=== PATIENT | female | born 1965 | race Hispanic/Latino ===

== ENCOUNTER 2018-01-24 18:41 | Emergency (ER) | payer BC ==
--- NOTE | 2018-01-24 19:17 | RAD ---
CHEST TWO VIEWS: HISTORY: Cough. COMPARISON: 10/28/2007 FINDINGS: Normal cardiac silhouette. Pulmonary vessels and hilum are normal. Costophrenic angles are clear. No consolidation or mass. No pneumothorax or osseous abnormalities. IMPRESSION: No acute cardiopulmonary process. POS: [facility]
== END 2018-01-24 21:09 | disposition home or self-care (01) ==
LOC: ERS 18:41
DX: J40 Bronchitis, not specified as acute or chronic (principal)
CPT/HCPCS: 71046; 87804

== ENCOUNTER 2018-05-23 11:03 | Outpatient (CLI) | payer BC ==
--- NOTE | 2018-05-23 13:11 | RAD ---
LEFT KNEE THREE VIEWS: HISTORY: Left knee pain. COMPARISON: None. FINDINGS: Three views of the left knee show no evidence of acute fracture or dislocation. Mild degenerative ch anges are seen in the patellofemoral and lateral femorotibial compartments. IMPRESSION: Mild left knee osteoarthritis. POS: [facility]
== END 2018-05-23 11:04 | disposition home or self-care (01) ==
LOC: BICRAD 11:03
PROVIDERS: ATTEND Internal Medicine
DX: M25.562 Pain in left knee (principal); M17.12 Unilateral primary osteoarthritis, left knee
CPT/HCPCS: 36415; 80053; 80061; 82306; 83036; 84443; 85025

== ENCOUNTER 2018-05-30 12:38 | Outpatient (CLI) | payer BC ==
--- NOTE | 2018-05-30 15:05 | MRI ---
LEFT KNEE MRI WITHOUT IV CONTRAST: HISTORY: Left knee pain. FINDINGS: Multiplanar, multisequence MRI examination of the knee is performed. There is some suprapatellar rec ess fluid. There is some generalized cartilage loss including the femoropatellar compartment with so me subchondral cystic changes as well as the medial compartment. Irregular flap tear of the posterio r horn of the medial meniscus with displaced meniscal flaps at the level of the posterior root and al so at the posterior body posterior horn junction. There is an adjacent cystic focus posterior to the posterior root, possibly a small paralabral cyst. Immediate to this and somewhat more centrally, th ere is a 2nd cyst measuring approximately 1.3 cm which could represent extension of the paralabral cy st, although it could represent a small ganglion cyst. The lateral meniscus is a borderline discoid meniscus. The anterior and posterior cruciate ligaments and collateral ligament complexes appear int act. Quadriceps and patellar tendons appear intact. Anterior and posterior cruciate ligaments appea r intact. No significant acute osteochondral defect. No significant abnormal marrow signal. IMPRESSION: Complex flap tear of the posterior horn of the medial meniscus. Borderline discoid lateral meniscus. Probable paralabral cyst/cysts projecting posteriorly from the posterior root of the medial menisc us. Tricompartment arthrosis and degenerative changes. POS: [facility]
== END 2018-05-30 12:39 | disposition home or self-care (01) ==
LOC: TBSIIMAG 12:38
PROVIDERS: ATTEND Internal Medicine
DX: M25.562 Pain in left knee (principal); S83.232A Complex tear of medial meniscus, current injury, left knee, initial encounter; M17.12 Unilateral primary osteoarthritis, left knee

== ENCOUNTER 2018-06-09 00:28 | Outpatient (CLI) | payer BC ==
[2018-06-09 15:44] LABS: #Basophils 0.1 thou/uL (0.0-0.2); #Eosinphils 0.1 thou/uL (0.0-0.7); #Lymphocytes 2.1 thou/uL (1.20-3.40); #Monocytes 0.5 thou/uL (0.11-0.59); #Neutrophils 2.7 thou/uL (1.40-6.50); %Eosinophils 2.4 % (0.0-10.0); %Lymphocytes 38.6 % (21.0-51.0); %Monocytes 8.8 % (0.0-10.0); %Neutrophils 49.2 % (42.0-75.0); Hemoglobin 14.1 g/dL (12.0-16.0); Mean Corpuscular HGB CONC 33.9 g/dL (32.0-36.0); Mean Corpuscular Hemoglobin 32.4 pg (27.0-31.0); Mean Corpuscular Volume 95.7 fL (78.0-98.0); Mean Platelet Volume 7.2 fL (7.4-10.4); Platelet Count 171 thou/uL (130-400); Red Blood Cell (RBC) Count 4.34 mill/uL (4.20-5.40); White Blood Cell (WBC) Count 5.4 thou/uL (4.8-10.8)
[2018-06-09 16:06] LABS: Anion Gap 11 mmol/L (10-20); BUN (Urea Nitrogen) 8 mg/dL (9.8-20.1); Calc. Creatinine Clearance 0 mL/min (70-130); Calcium 9.9 mg/dL (7.8-10.44); Carbon Dioxide 29 mmol/L (22-29); Chloride 105 mmol/L (98-107); Estimated GFR-MDRD 79; Glucose 123 mg/dL (70-105); Potassium 3.8 mmol/L (3.5-5.1); Sodium 141 mmol/L (136-145)
--- NOTE | 2018-06-10 22:29 | EKG ---
Test Reason : Blood Pressure : / mmHG Vent. Rate : 067 BPM Atrial Rate : 067 BPM P-R Int : 164 ms QRS Dur : 102 ms QT Int : 404 ms P-R-T Axes : 040 -05 037 degrees QTc Int : 426 ms Normal sinus rhythm Incomplete right bundle branch block Cannot rule out Inferior infarct , age undetermined Anterior infarct , age undetermined Abnormal ECG No previous ECGs available Confirmed by Almita BOLIVAR ([id number]) on 06/10/2018 10:29:21 PM Referred By: CHEYANNE Confirmed By:Almita BOLIVAR
== END 2018-06-09 00:29 | disposition home or self-care (01) ==
LOC: LABBT 00:28
PROVIDERS: ATTEND Orthopaedic Surgery
DX: Z01.818 Encounter for other preprocedural examination (principal); S83.242A Other tear of medial meniscus, current injury, left knee, initial encounter
CPT/HCPCS: 80048; 85025; 93005; 93010

== ENCOUNTER 2018-06-13 07:49 | Day surgery (SDC) | payer BC ==
[2018-06-09 15:00] VITALS: BMI 38.9
[2018-06-13] MEDS ORDERED: PROPOFOL 20 ML ONE (08:02)
--- NOTE | 2018-06-13 10:57 | OP ---
DATE OF PROCEDURE: 06/13/2018 PREOPERATIVE DIAGNOSIS: Left knee medial meniscus tear. POSTOPERATIVE DIAGNOSIS: Left knee medial meniscus tear. PROCEDURE PERFORMED: Arthroscopic partial medial meniscectomy. ANESTHESIA: General. ESTIMATED BLOOD LOSS: Minimal. SPECIMENS: None. DRAINS: None. COMPLICATIONS: None. FINDINGS: Grade 3 chondromalacia of medial femoral condyle, small patchy grade 4 chondromalacia of medial femoral condyle, intact lateral compartment, intact ACL, intact patellofemoral joint. Scope was placed in the lateral portal and probe was placed in the medial portal. The medial meniscus was debrided using basket forceps and smoothed using a 4-0 full-radius resector, removed most of the posterior horn of the medial meniscus. I probed remainder of the meniscus, confirmed to be stable. I irrigated the knee, irrigated the gutters, make sure there were no loose bodies. The scope was removed and a sterile dressing was applied. There were no complications. Job ID: [id number]
[2018-06-13] MEDS ORDERED: HYDROcodone/Acetaminophen 5/325 mg Tablet ONE (11:09)
[2018-06-13] MEDS ORDERED: Lidocaine 2% w/Epinephrine 1:200K 20 ML VIAL ONE (16:29)
[2018-06-13] MEDS ORDERED: Bupivacaine HCl 0.5%/Epinephrine 1:200,000/PF 30 ml Vial ONE (16:29)
[2018-06-13] MEDS ORDERED: Lidocaine 1% PF 5 ML VIAL ONE (17:02)
[2018-06-13] MEDS ORDERED: PROPOFOL 200 MG/20 ML VIAL ONE ×2 (17:02→17:03)
[2018-06-13] MEDS ORDERED: Ondansetron PF 4 MG/2 ML Vial ONE (17:02)
[2018-06-13] MEDS ORDERED: Ketorolac Tromethamine 30 MG/ML VIAL ONE (17:02)
== END 2018-06-13 11:50 | disposition home or self-care (01) ==
LOC: SDC 07:49
PROVIDERS: ATTEND Orthopaedic Surgery
PROC: 0SBD4ZZ Excision of Left Knee Joint, Percutaneous Endoscopic Approach (ICD-10-PCS; principal; 2018-06-13)
DX: S83.242A Other tear of medial meniscus, current injury, left knee, initial encounter (principal); M94.262 Chondromalacia, left knee; M17.12 Unilateral primary osteoarthritis, left knee; Z87.891 Personal history of nicotine dependence; Z79.899 Other long term (current) drug therapy; Z88.5 Allergy status to narcotic agent
CPT/HCPCS: J0690; J2704

== ENCOUNTER 2019-04-24 09:17 | Observation (INO) | payer BC, SELFPAY ==
[2019-04-24 09:38] LABS: #Eosinphils 0.1 thou/uL (0.0-0.7); #Lymphocytes 2.1 thou/uL (1.20-3.40); #Monocytes 0.5 thou/uL (0.11-0.59); #Neutrophils 2.3 thou/uL (1.40-6.50); %Basophils 0.7 % (0.0-1.0); %Eosinophils 2.5 % (0.0-10.0); %Monocytes 9.3 % (0.0-10.0); %Neutrophils 46.5 % (42.0-75.0); Mean Corpuscular HGB CONC 34.6 g/dL (32.0-36.0); Mean Corpuscular Hemoglobin 33.7 pg (27.0-31.0); Mean Corpuscular Volume 97.4 fL (78.0-98.0); Mean Platelet Volume 7.9 fL (7.4-10.4); Platelet Count 139 thou/uL (130-400); Red Blood Cell (RBC) Count 4.45 mill/uL (4.20-5.40)
[2019-04-24 10:08] LABS: ALT (SGPT) 36 U/L (8-55); AST (SGOT) 46 U/L (5-34); Albumin 3.8 g/dL (3.5-5.0); Alkaline Phosphatase 107 U/L (40-110); Anion Gap 10 mmol/L (10-20); BUN (Urea Nitrogen) 7 mg/dL (9.8-20.1); CK (CPK) 107 U/L (29-168); Calc. Creatinine Clearance 0 mL/min (70-130); Calcium 9.5 mg/dL (7.8-10.44); Carbon Dioxide 26 mmol/L (22-29); Chloride 107 mmol/L (98-107); Estimated GFR-MDRD 89; Globulin 3.2 g/dL (2.4-3.5); Glucose 92 mg/dL (70-105); Lipase 44 U/L (8-78); Potassium 4.1 mmol/L (3.5-5.1); Sodium 139 mmol/L (136-145)
[2019-04-24] MEDS ORDERED: Aspirin Chewable 81 MG TAB ONE (11:59)
[2019-04-24] MEDS ORDERED: Nitroglycerin 2% Ointment 1 INCH/1 GM Packet ONE (11:59)
[2019-04-24] MEDS ORDERED: Ondansetron ODT 4 MG TAB SL PRN (12:30)
[2019-04-24] MEDS ORDERED: Ondansetron PF 4 MG/2 ML Vial IVP PRN (12:30)
[2019-04-24] MEDS ORDERED: HYDROcodone/Acetaminophen 5/325 mg Tablet PO PRN ×2 (12:30)
[2019-04-24] MEDS ORDERED: Acetaminophen 325 MG TAB PO PRN (12:30)
[2019-04-24] MEDS ORDERED: Sodium Chloride 0.9% 1,000 ML IV SCH (12:30)
--- NOTE | 2019-04-24 13:46 | PDOC.HHP ---
Hospitalist HPI - History of Present Illness Chest pain History of Present Illness: Mrs. Rose is a 52 y/o F w/ no significant past medical history presenting to the [facility] c/o of midsternal CP onset 0400 this morning. Pt states that the CP woke her up from sleep and describes the pain as a "hard, and sharp pain similar to my bladder pain." Pt states that the pain radiated to her back, abdomen, upper chest, and to her neck and shoulders bilaterally. She states that she had a severe 10/10 CP until 0730 this morning. She received Aspirin 81mg at the ED which improved the pain. No exacerbating factors were stated by the patient. The pain has eased to a sharp pain that comes and goes. Pt also complains of headache over her forehead, LE edema, and nausea. She denies syncope, dizziness, diaphoresis, change in vision, SOB, vomiting, diarrhea, dysuria, and hematuria. ED Course: Drug Name Dose Ordered Route Status Time sodium chloride 0.9 % intravenous 1 L IV Fluid Infusion Given 12:15 04/24/2019 aspirin oral 324 mg Oral Given 12:10 04/24/2019 Nitro-Bid transdermal 1/2 inch Topical Given 12:10 04/24/2019 Hospitalist ROS - Review of Systems Constitutional: denies: fever, chills, sweats, weakness, malaise, other Eyes: denies: pain, vision change, conjunctivae inflammation, eyelid inflammation, redness, other ENT: denies: ear pain, ear discharge, nose pain, nose discharge, nose congestion , mouth pain, mouth swelling, throat pain, throat swelling, other Respiratory: denies: cough, dry, shortness of breath, hemoptysis, SOB with excertion, pleuritic pain, sputum, wheezing, other Cardiovascular: reports: chest pain, edema. denies: palpitations, orthopnea, paroxysmal noc. dyspnea, light headedness, other Gastrointestinal: reports: nausea. denies: vomiting, abdominal pain, diarrhea, constipation, melena, hematochezia, other Genitourinary: denies: dysuria, frequency, incontinence, hematuria, retention, other Musculoskeletal: denies: neck pain, shoulder pain, arm pain, back pain, hand pain, leg pain, foot pain, other Skin: denies: rash, lesions, jefferson, bruising, other Neurological: denies: weakness, numbness, incoordination, change in speech, confusion, seizures, other All other systems reviewed; all pertinent +/- noted in HPI/Subj Hospitalist History - Past Medical History Source: patient Cardiac: reports: Other (cardiac murmur - found 1 yr ago - never worked up) Other Medical History: Past medical Hx reviewed and none - Past Surgical History Past Surgical History: reports: Cholecystectomy Other Surgical History: HYSTERECTOMY, LEFT ANKLE SURGERY, METAL PLATE WITH SCREWS TO LEFT ANKLE, CHOLECYSTECTOMY. - Family History Other Family History: Father; diabetes Mother: Kidney cancer, liver transplant, DM, Heart disease Maternal uncle: heart disease, stroke - Social History Smoking Status: Current some day smoker Other Social History: Patient denies alcohol use, Patient denies drug use, Patient currently uses tobacco, smokes cigarettes, Occasional or some day smoker, Lives at home, with family. - Exam General Appearance: NAD, awake alert Eye: PERRL. negative: scleral icterus ENT: normocephalic atraumatic Neck: supple, no JVD, no carotid bruit Heart: RRR, no gallops, no rubs, murmur present, III/IV Respiratory: no wheezes, no rales, no ronchi, normal chest expansion, no tachypnea Gastrointestinal: soft, non-tender, non-distended, normal bowel sounds, no palpable masses, no hepatomegaly, no bruit, no guarding, no rigidity Extremities: 1+ LE edema. negative: no cyanosis, no clubbing, no edema, 2+ LE edema, clubbing Skin: negative: normal turgor, no lesions, no rashes, tenting Neurological: cranial nerve grossly intact, normal sensation to touch, no weakness. negative: facial droop, speech deficit, vision deficit Musculoskeletal: normal tone, normal strength, no muscle wasting Psychiatric: normal affect, normal behavior, A&O x 3 Hospitalist Results - Labs Result Diagrams: 04/24/19 09:28 04/24/19: Lab results: WBC 5.0 thou/uL (4.8-10.8) 04/24/19: Hgb 15.0 g/dL (12.0-16.0) 04/24/19: Hct 43.3 % (36.0-47.0) 02/21/20 09:28 MCV 97.4 fL (78.0-98.0) 04/24/19 09:28 Plt Count 139 thou/uL (130-400) 04/24/19 09:28 Neutrophils % 46.5 % (42.0-75.0) 04/24/19 09:28 Sodium 139 mmol/L (136-145) 04/24/19 09:28 Potassium 4.1 mmol/L (3.5-5.1) 04/24/19: Chloride 107 mmol/L (98-107) 04/24/19 09:28 Carbon Dioxide 26 mmol/L (22-29) 04/24/19 09:28 BUN 7 mg/dL (9.8-20.1) L 04/24/19 09:28 Creatinine 0.69 mg/dL (0.6-1.1) 04/24/19 09: Glucose 92 mg/dL (70-105) 04/24/19: Calcium 9.5 mg/dL (7.8-10.44) 04/24/19: Total Bilirubin 1.0 mg/dL (0.2-1.2) 04/24/19 09: AST 46 U/L (5-34) H 04/24/19:28 ALT 36 U/L (8-55) 04/24/19 09:28 Alkaline Phosphatase 107 U/L (40-110) 04/24/19 09: Creatine Kinase 107 U/L (29-168) 04/24/19 09: Troponin I 0.012 ng/mL (< 0.028) 04/24/19 09: Serum Total Protein 7.0 g/dL (6.0-8.3) 04/24/19:28 Albumin 3.8 g/dL (3.5-5.0) 04/24/19: Lipase 44 U/L (8-78) 04/24/19 09:28 Laboratory Tests 04/24/19 09:28 Troponin I 0.012 Laboratory Tests 04/24/19 09:28 BUN 7 L - EKG Interpretation EKG: SR - reviewed by me - Radiology Interpretation Chest x-ray Status: image reviewed by me Additional Comment: No infiltrate Hospitalist H&P A/P - Problem (1) Chest pain Code(s): R07.9 - CHEST PAIN, UNSPECIFIED Status: Acute (2) CKD (chronic kidney disease) stage 2, GFR 60-89 ml/min Code(s): N18.2 - CHRONIC KIDNEY DISEASE, STAGE 2 (MILD) Status: Chronic (3) Former tobacco use Code(s): Z87.891 - PERSONAL HISTORY OF NICOTINE DEPENDENCE Status: Chronic (4) Morbid obesity Code(s): E66.01 - MORBID (SEVERE) OBESITY DUE TO EXCESS CALORIES Status: Chronic (5) Cardiac murmur Code(s): R01.1 - CARDIAC MURMUR, UNSPECIFIED Status: Chronic - Plan Plan: Serial troponins Tele monitoring Stress test due to intermediate prob for CAD Echo to assess murmur - found 1 yr ago - Can also be done as outpt if stress test negative Monitor Troponin I. Cardiac stress test is ordered. Smoking cessation advised Assessment & Plan - Assessment Patient Problems: Problem List Problem Status Onset Chest pain Acute CKD (chronic kidney disease) stage 2, GFR 60-89 ml/min Chronic Cardiac murmur Chronic Former tobacco use Chronic Morbid obesity Chronic
[2019-04-24 14:07] LABS: Troponin I Less than 0.010 ng/mL (< 0.028)
[2019-04-24 14:24] VITALS: BMI 40.4
[2019-04-24] MEDS ORDERED: Nitroglycerin 0.4 MG TAB (25 Tab Bottle) PO PRN (14:57)
[2019-04-24 16:36] LABS: Troponin I Less than 0.010 ng/mL (< 0.028)
[2019-04-24] MEDS ORDERED: Enoxaparin Sodium 40 MG/0.4 ML SYRINGE SC SCH (21:00)
[2019-04-25 06:40] LABS: Cardiac Risk 3.6 (Less than 4.5)
[2019-04-25 08:03] VITALS: TEMP 97.8
[2019-04-25] MEDS ORDERED: Aspirin 325 mg Enteric Coated Tablet PO SCH (09:00)
[2019-04-25] MEDS ORDERED: FLU VACC QS2019-20(6MOS UP)/PF 60 MCG/0.5 ML SYRINGE IM ONE (09:00)
--- NOTE | 2019-04-25 11:04 | NM ---
Pharmacologic myocardial perfusion study HISTORY: Chest pain FINDINGS: Stress myocardial perfusion images demonstrate normal uptake of radiotracer seen within the left vent ricular myocardium. No focal defect is seen within the left ventricular myocardium. Gated images demonstrate normal ventricular wall motion and wall thickening. Calculated left ventricular ejection fraction is 72%. IMPRESSION: 1. Normal stress only myocardial perfusion study without a defect seen in the left ventricular myocar dium to suggest ischemia or scarring. 2. Normal LVEF of 72%.
--- NOTE | 2019-04-25 11:30 | PDOC.HOSPP ---
- Subjective Encounter Date: 04/25/19 Encounter Time: 11:28 Subjective: Ms. Rose was seen today in follow-up of chest pain. She says her symptoms have resolved. - Objective Vital Signs & Weight: Vital Signs (12 hours) Temp Pulse Resp BP BP Pulse Ox 04/25/19 07:04 97.8 F 68 16 126/59 L 96 04/25/19 04:40 98.3 F 69 16 113/56 L 96 Weight Weight 243 lb 3 oz I&O: 04/24/19 04/25/19 04/26/19 06:59 06:59 06:59 Intake Total 840 Output Total 250 Balance 590 Result Diagrams: 04/24/19 09:28 04/24/19 09:28 - Exam Eye: PERRL, anicteric sclera Heart: RRR, no murmur, no gallops, no rubs, normal peripheral pulses Respiratory: CTAB, no wheezes, no rales, no ronchi, normal chest expansion, no tachypnea, normal percussion Hosp A/P (1) Chest pain Code(s): R07.9 - CHEST PAIN, UNSPECIFIED Status: Acute (2) Morbid obesity Code(s): E66.01 - MORBID (SEVERE) OBESITY DUE TO EXCESS CALORIES Status: Chronic - Plan * Chest pain- probable non-cardiac- will give a trail of Protonix * Stable for discharge home with close follow-up.
[2019-04-25 12:05] VITALS: BP 128/56
--- NOTE | 2019-04-25 14:23 | DIS ---
DATE OF ADMISSION: 04/24/2019 DATE OF DISCHARGE: 04/25/2019 PRIMARY CARE PHYSICIAN: Amelie Lawson MD DISCHARGE DISPOSITION: Home. DISCHARGE DIAGNOSES: 1. Chest pain, probable, noncardiac. 2. Morbid obesity. 3. Probable gastroesophageal reflux disease. DISCHARGE MEDICATIONS: Protonix 40 mg daily. IMAGING DONE DURING THE HOSPITAL STAY: The patient had an echocardiogram in which the ejection fraction was estimated at 60% to 65%. The left ventricle was normal. The patient had a nuclear stress test. The patient only got up to 56% of her target heart rate. However, there was no reversible ischemia. No other defect. The EF was estimated at 72%. CODE STATUS: Full code. ALLERGIES: TO MORPHINE. HOSPITAL COURSE: Ms. Quintin Rose is a 53-year-old female, who presented to the emergency room complaining of chest pain, which was substernal. She says it awoke her from sleep. She says it was hard and sharp and she says she has had reflux symptoms before, but thought that this was different. She was placed in observation and she was ruled out. A nuclear stress test was obtained, which was essentially negative and echo results were also noted. It is unlikely that the pain that she experience is cardiac, however, she did not reach her target heart rate during the stress test. This was discussed with the patient and told that if she has any recurring symptoms, she should see her primary care physician and/or return to the hospital. We will be placing her on empiric Protonix in the event that this is some type of GERD or GI symptoms and she is to have close outpatient followup with her primary care physician in 1 week. Job ID: [id number]
--- NOTE | 2019-04-28 10:31 | RAD ---
Chest AP view INDICATION: Chest pain COMPARISON: January 24, 2018 FINDINGS: Lungs: The lungs are clear Cardiac silhouette: The cardiomediastinal silhouette appears within normal limits. Pulmonary vasculature: Normal Pleural spaces: No pleural effusion or pneumothorax is demonstrated. Upper abdomen: No abnormality seen. Osseous structures: No acute osseous abnormality. Additional findings: Cholecystectomy clips IMPRESSION: No acute cardiopulmonary abnormality.
== END 2019-04-25 12:49 | disposition home or self-care (01) ==
LOC: ERS 09:17 → 2SW 14:11
PROVIDERS: ADMIT Internal Medicine; ATTEND Internal Medicine
DX: R07.2 Precordial pain (principal); F17.210 Nicotine dependence, cigarettes, uncomplicated; N18.2 Chronic kidney disease, stage 2 (mild); R01.1 Cardiac murmur, unspecified; E66.01 Morbid (severe) obesity due to excess calories; Z68.41 Body mass index [BMI] 40.0-44.9, adult; Z88.5 Allergy status to narcotic agent
CPT/HCPCS: 36415; 71045; 78452; 80053; 80061; 82550; 83690; 84484; 85025; 90471; 90686; 93005; 93017; 93306; 94760; 96360; A9500; G0008; G0378; J0153

== ENCOUNTER 2019-12-16 09:15 | Emergency (ER) | payer OTHER, SELFPAY ==
[2019-12-16 19:04] LABS: SARS-CoV-2 MS2 Positive; SARS-CoV-2 N Gene Negative; SARS-CoV-2 S Gene Negative; SARS-CoV-2 by NAA Not Detected (NotDetected); SARS-CoV-2 orf1ab Negative
== END 2019-12-16 09:55 | disposition home or self-care (01) ==
LOC: ERS 09:15
DX: Z20.828 Contact with and (suspected) exposure to other viral communicable diseases (principal); F17.210 Nicotine dependence, cigarettes, uncomplicated
CPT/HCPCS: 87635; 99283; U0003

== ENCOUNTER 2020-07-10 21:16 | Emergency (ER) | payer OTHER, SELFPAY | END 2020-07-10 23:51 | disposition home or self-care (01) | LOC: ERS 21:16 | DX: S80.12XA Contusion of left lower leg, initial encounter (principal); F17.210 Nicotine dependence, cigarettes, uncomplicated; W01.0XXA Fall on same level from slipping, tripping and stumbling without subsequent striking against object, initial encounter ==

== ENCOUNTER → 2020-10-24 | Emergency (ER) | payer SELFPAY ==
[~2020-10-24] MED LIST: Dextrose 50% Abboject 50 ML SYRINGE ONE; Norepinephrine 8 MG/0.9% NS 250 ML ONE; Vancomycin 1 GM/200 ML BAG ONE
[2020-10-24 17:38] LABS: Actual Bicarbonate (HCO3a) 11.1 mEq/L (22-28); Analyzer IN Cardio ER; Base Excess (BEa) -12.5 mEq/L (-2.0 to +3.0); Carboxyhemoglobin (COHb) 0.3 gm% (0.0-3.0); Hemoglobin (Hb) 6.9 g/dL (12.0-16.0); Potassium - ABG Lab 2.67 mmol/L (3.70-5.30); pH, Arterial 7.39 (7.35-7.45)
[2020-10-24 17:39] LABS: CO2 Tension 18.6 mmHg (35.0-45.0); O2 Tension (PaO2), arterial 59.5 mmHg (80.0-100.0)
[2020-10-24 17:40] LABS: Puncture Site Arterial Line
[2020-10-24 18:03] LABS: #Lymphocytes 0.8 thou/uL (1.20-3.40); #Monocytes 0.5 thou/uL (0.11-0.59); #Neutrophils 7.9 thou/uL (1.40-6.50); %Basophils 0.1 % (0.0-1.0); %Eosinophils 0.5 % (0.0-10.0); %Lymphocytes 8.6 % (21.0-51.0); %Monocytes 5.6 % (0.0-10.0); %Neutrophils 85.3 % (42.0-75.0); Hemoglobin 9.1 g/dL (12.0-16.0); Mean Corpuscular HGB CONC 33.4 g/dL (32.0-36.0); Mean Corpuscular Hemoglobin 34.3 pg (27.0-31.0); RBC Distribution Width 14.5 % (11.5-14.5); Red Blood Cell (RBC) Count 2.67 mill/uL (4.20-5.40); White Blood Cell (WBC) Count 9.3 thou/uL (4.8-10.8)
[2020-10-24 18:18] LABS: Mean Platelet Volume 9.1 fL (7.4-10.4); Platelet Count 85 thou/uL (130-400); Platelet Morphology Comment Appears Decreased; RBC Morphology Normal
[2020-10-24 18:29] LABS: ALT (SGPT) 88 U/L (8-55); AST (SGOT) 228 U/L (5-34); Alkaline Phosphatase 119 U/L (40-110); Anion Gap 13 mmol/L (10-20); BUN (Urea Nitrogen) 38 mg/dL (9.8-20.1); Bilirubin, Total 3.9 mg/dL (0.2-1.2); Calc. Creatinine Clearance 0 mL/min (70-130); Calcium 6.2 mg/dL (7.8-10.44); Carbon Dioxide 15 mmol/L (22-29); Chloride 103 mmol/L (98-107); Globulin 2.4 g/dL (2.4-3.5); Glucose 125 mg/dL (70-105); Potassium 4.5 mmol/L (3.5-5.1); Protein, Total 3.4 g/dL (6.0-8.3); Sodium 126 mmol/L (136-145)
[2020-10-24 18:57] LABS: SARS-CoV-2 NAA Rapid Test Not Detected (NotDetected)
[2020-10-24 20:26] LABS: Bacteria/HPF 4+ HPF (None Seen); Bilirubin 1+ (Negative); Blood, Urine 2+ (Negative); Clarity Extra Turbid (Clear); Glucose, Urine (Dipstick) 30 mg/dL (Negative); Ketone, Urine Negative (Negative); Leukocyte Negative Leu/uL (Negative); Nitrite Negative (Negative); Protein, Urine (Dipstick) 70 mg/dL (Neg-Trace); RBC/HPF 0-3 HPF (0-3); Squamous Epithelial 0-3 HPF (0-3); Urobilinogen 3 mg/dL (Less than 2); WBC/HPF 21-50 HPF (0-3)
== END ==
LOC: ERS 16:53
DX: Z53.21 Procedure and treatment not carried out due to patient leaving prior to being seen by health care provider (principal)
CPT/HCPCS: 0240U; 36415; 36416; 71045; 80053; 80307; 81003; 81015; 82140; 82805; 83605; 83880; 84484; 85025; 87040; 87086; 93005; J3370

== ENCOUNTER 2023-02-21 00:33 | Emergency (ER) | payer SELFPAY ==
[2023-02-21 01:56] LABS: SARS-CoV-2 NAA Rapid Test Not Detected (NotDetected)
[2023-02-21] MEDS ORDERED: Benzonatate 100 MG CAP ONE (02:49)
[2023-02-21] MEDS ORDERED: Acetaminophen 500 MG TAB ONE (02:49)
== END 2023-02-21 02:52 | disposition home or self-care (01) ==
LOC: ERS 00:33
DX: H66.003 Acute suppurative otitis media without spontaneous rupture of ear drum, bilateral (principal); J20.9 Acute bronchitis, unspecified
CPT/HCPCS: 71045

== ENCOUNTER 2023-05-14 04:33 | Emergency (ER) | payer BC ==
[2023-05-14 05:54] LABS: #Eosinphils 0.2 thou/uL (0.0-0.7); #Monocytes 0.6 thou/uL (0.11-0.59); %Basophils 0.7 % (0.0-1.0); %Eosinophils 3.8 % (0.0-10.0); %Lymphocytes 33.7 % (21.0-51.0); %Monocytes 13.7 % (0.0-10.0); %Neutrophils 47.4 % (42.0-75.0); Hematocrit 31.6 % (36.0-47.0); Hemoglobin 10.7 g/dL (12.0-16.0); Mean Corpuscular HGB CONC 33.9 g/dL (32.0-36.0); Mean Corpuscular Hemoglobin 36.1 pg (27.0-31.0); Mean Corpuscular Volume 106.8 fl (78.0-98.0); Mean Platelet Volume 11.1 fL (7.4-10.4); RBC Distribution Width 14.6 % (11.5-14.5); Red Blood Cell (RBC) Count 2.96 mill/uL (4.20-5.40); White Blood Cell (WBC) Count 4.2 10x3/uL (4.8-10.8)
[2023-05-14] MEDS ORDERED: Aspirin Chewable 81 MG TAB ONE (05:56)
[2023-05-14 06:10] LABS: ALT (SGPT) 24 U/L (8-55); AST (SGOT) 41 U/L (5-34); Albumin 2.4 g/dL (3.5-5.0); Alkaline Phosphatase 188 U/L (40-110); Anion Gap 7 mmol/L (10-20); BUN (Urea Nitrogen) 11 mg/dL (9.8-20.1); Calc. Creatinine Clearance 0 mL/min (70-130); Calcium 10.3 mg/dL (7.8-10.44); Carbon Dioxide 25 mmol/L (22-29); Chloride 108 mmol/L (98-107); Estimated GFR 79; Globulin 3.4 g/dL (2.4-3.5); Glucose 87 mg/dL (70-105); Potassium 3.9 mmol/L (3.5-5.1); Protein, Total 5.8 g/dL (6.0-8.3); Sodium 136 mmol/L (136-145)
[2023-05-14 06:14] LABS: Troponin I 0.016 ng/mL (< 0.028)
[2023-05-14 06:52] LABS: Platelet Count 64 10x3/uL (130-400)
[2023-05-14 07:15] LABS: Anisocytosis MODERATE=16-30 cells HPF (0-5); CellaVision Operator ID LAB.JMM; Macrocytosis MODERATE=16-30 cells HPF (0-5); Platelet Adequacy Comment Platelets Decreased
[2023-05-14 08:37] LABS: Troponin I Less than 0.010 ng/mL (< 0.028)
== END 2023-05-14 09:35 | disposition home or self-care (01) ==
LOC: ERS 04:33
DX: K70.30 Alcoholic cirrhosis of liver without ascites (principal); R07.9 Chest pain, unspecified; E80.6 Other disorders of bilirubin metabolism; Z55.6 Problems related to health literacy
CPT/HCPCS: 36415; 71045; 80053; 83880; 84484; 85025; 93005

== ENCOUNTER 2023-11-20 11:20 | Outpatient (CLI) | payer BC | END 2023-11-20 11:21 | disposition home or self-care (01) | LOC: BICMAMMO 11:20 | PROVIDERS: ATTEND Student in an Organized Health Care Education/Training Program | DX: Z12.31 Encounter for screening mammogram for malignant neoplasm of breast (principal); N63.25 Unspecified lump in the left breast, overlapping quadrants | CPT/HCPCS: 77063; 77067 ==

== ENCOUNTER 2023-11-27 09:56 | Outpatient (CLI) | payer BC | END 2023-11-27 09:57 | disposition home or self-care (01) | LOC: BICMAMMO 09:56 | PROVIDERS: ATTEND Student in an Organized Health Care Education/Training Program | DX: N63.25 Unspecified lump in the left breast, overlapping quadrants (principal) | CPT/HCPCS: G0279 ==

== ENCOUNTER → 2023-12-03 | Day surgery (SDC) | payer BC | LOC: BICULT 11:30 | PROVIDERS: ATTEND Student in an Organized Health Care Education/Training Program | PROC: 0H95XZX Drainage of Chest Skin, External Approach, Diagnostic (ICD-10-PCS; principal; 2023-12-03) | DX: N60.92 Unspecified benign mammary dysplasia of left breast (principal); R92.8 Other abnormal and inconclusive findings on diagnostic imaging of breast; R92.1 Mammographic calcification found on diagnostic imaging of breast | CPT/HCPCS: 19083; 88305 ==

== ENCOUNTER 2024-10-24 13:17 | Inpatient (IN) | payer BC ==
[2024-10-24 14:01] LABS: Actual Bicarbonate (HCO3v) 20.5 mEq/L (22-28); Base Excess -3.8 mEq/L (-2.0 to +3.0); Calcium, Ionized (venous) 1.32 mmol/L (1.16-1.32); Chloride (VBG) 107 mmol/L (98-106); Hematocrit-VBG 32 % (36.0-47.0); Hemoglobin (Hb) 10.8 g/dL (11.7-16.0); Potassium (VBG) 4.06 mmol/L (3.70-5.30); Sodium 135 mmol/L (133-146)
[2024-10-24 14:07] LABS: #Basophils Less than 0.03 10x3/uL (0.0-0.2); #Eosinophils 0.07 10x3/uL (0.0-0.7); #Monocytes 0.30 10x3/uL (0.11-0.59); #Neutrophils 1.60 10x3/uL (1.40-6.50); %Basophils 0.4 % (0.0-1.0); %Eosinophils 3.0 % (0.0-10.0); %Lymphocytes 13.5 % (21.0-51.0); %Monocytes 13.0 % (0.0-10.0); %Neutrophils 69.7 % (42.0-75.0); Hematocrit 29.3 % (36.0-47.0); Hemoglobin 9.3 g/dL (12.0-16.0); Mean Corpuscular Hemoglobin 34.7 pg (27.0-31.0); Mean Corpuscular Volume 109.3 fL (78.0-98.0); Platelet Count 45 10x3/uL (130-400); Red Blood Cell (RBC) Count 2.68 mill/uL (4.20-5.40); White Blood Cell (WBC) Count 2.30 10x3/uL (4.8-10.8)
[2024-10-24 14:11] LABS: ALT (SGPT) 21 U/L (Less than 34); AST (SGOT) 51 U/L (11-34); Albumin 2.3 g/dL (3.1-4.5); Alkaline Phosphatase 193 U/L (40-110); Anion Gap 9 mmol/L (10-20); BUN (Urea Nitrogen) 13 mg/dL (9.8-20.1); Bilirubin, Total 3.4 mg/dL (0.3-1.2); Calc. Creatinine Clearance 0 mL/min (70-130); Calcium 10.4 mg/dL (7.8-10.44); Carbon Dioxide 21 mmol/L (22-29); Chloride 110 mmol/L (98-107); Globulin 3.1 g/dL (2.4-3.5); Glucose 163 mg/dL (70-105); Lipase 31 U/L (8-78); Potassium 4.1 mmol/L (3.5-5.1); Sodium 136 mmol/L (136-145)
[2024-10-24 14:21] LABS: Bacteria/HPF 3+ HPF (None Seen); CAUTI Indications for Culture Alt mental st,lethar; Glucose, Urine (Dipstick) Normal (Negative); Leukocyte 75 Leu/uL (Negative); Protein, Urine (Dipstick) Negative (Neg-Trace); Specific Gravity, Urine 1.017 (1.002-1.036); WBC/HPF 21-50 HPF (0-3)
[2024-10-24 14:23] LABS: Urine Culture Reflex Yes Yes
[2024-10-24 14:48] LABS: INR-International Normal Ratio 1.8; PTT 37.9 sec (22.9-36.1); Prothrombin Time 20.8 sec (12.0-14.7)
[2024-10-24] MEDS ORDERED: cefTRIAXone (ROCEPHIN) 1 GM VIAL ONE (16:58)
[2024-10-24] MEDS ORDERED: Senokot S 8.6-50 MG TAB PO PRN (17:06)
[2024-10-24] MEDS ORDERED: Ondansetron PF 4 MG/2 ML Vial IVP PRN (17:06)
[2024-10-24] MEDS ORDERED: Acetaminophen 325 MG TAB PO PRN (17:06)
[2024-10-24] MEDS ORDERED: Calcium Carbonate 500 MG ChewTAB PO PRN (17:06)
[2024-10-24 19:29] VITALS: BMI 40.4
[2024-10-24] MEDS: Albumin 25% 25 GM (100 mL) BOT IVPB SCH (19:57)
[2024-10-25 05:30] LABS: #Basophils Less than 0.03 10x3/uL (0.0-0.2); #Eosinophils 0.09 10x3/uL (0.0-0.7); #Monocytes 0.31 10x3/uL (0.11-0.59); #Neutrophils 1.46 10x3/uL (1.40-6.50); %Basophils 0.4 % (0.0-1.0); %Eosinophils 4.0 % (0.0-10.0); %Lymphocytes 16.1 % (21.0-51.0); %Monocytes 13.9 % (0.0-10.0); %Neutrophils 65.6 % (42.0-75.0); Hematocrit 27.8 % (36.0-47.0); Hemoglobin 9.1 g/dL (12.0-16.0); Mean Corpuscular Hemoglobin 35.1 pg (27.0-31.0); Mean Corpuscular Volume 107.3 fL (78.0-98.0); Platelet Count 50 10x3/uL (130-400); Red Blood Cell (RBC) Count 2.59 mill/uL (4.20-5.40); White Blood Cell (WBC) Count 2.23 10x3/uL (4.8-10.8)
[2024-10-25 05:55] LABS: ALT (SGPT) 19 U/L (Less than 34); AST (SGOT) 44 U/L (11-34); Albumin 2.6 g/dL (3.1-4.5); Alkaline Phosphatase 183 U/L (40-110); Anion Gap 8 mmol/L (10-20); BUN (Urea Nitrogen) 13 mg/dL (9.8-20.1); Bilirubin, Total 2.8 mg/dL (0.3-1.2); Calc. Creatinine Clearance 101 mL/min (70-130); Calcium 10.4 mg/dL (7.8-10.44); Carbon Dioxide 22 mmol/L (22-29); Chloride 114 mmol/L (98-107); Globulin 2.7 g/dL (2.4-3.5); Glucose 85 mg/dL (70-105); Potassium 4.0 mmol/L (3.5-5.1); Sodium 140 mmol/L (136-145)
[2024-10-25] MEDS: Aspirin 81 mg Enteric Coated Tablet PO SCH (09:01)
[2024-10-25] MEDS: cefTRIAXone\\ROCEPHIN 1 GM in Sodium Chloride 0.9% 100 ML IVPB SCH (09:01)
[2024-10-26 07:03] LABS: Anion Gap 9 mmol/L (10-20); BUN (Urea Nitrogen) 11 mg/dL (9.8-20.1); Calc. Creatinine Clearance 112 mL/min (70-130); Calcium 10.4 mg/dL (7.8-10.44); Carbon Dioxide 22 mmol/L (22-29); Chloride 112 mmol/L (98-107); Glucose 86 mg/dL (70-105); Potassium 4.2 mmol/L (3.5-5.1); Sodium 139 mmol/L (136-145)
[2024-10-26 07:47] LABS: #Basophils Less than 0.03 10x3/uL (0.0-0.2); #Eosinophils 0.07 10x3/uL (0.0-0.7); #Monocytes 0.31 10x3/uL (0.11-0.59); #Neutrophils 1.14 10x3/uL (1.40-6.50); %Basophils 0.0 % (0.0-1.0); %Eosinophils 3.6 % (0.0-10.0); %Lymphocytes 20.7 % (21.0-51.0); %Monocytes 16.1 % (0.0-10.0); %Neutrophils 59.1 % (42.0-75.0); Hematocrit 25.9 % (36.0-47.0); Hemoglobin 8.4 g/dL (12.0-16.0); Mean Corpuscular Hemoglobin 35.0 pg (27.0-31.0); Mean Corpuscular Volume 107.9 fL (78.0-98.0); Platelet Count 50 10x3/uL (130-400); Red Blood Cell (RBC) Count 2.40 mill/uL (4.20-5.40); White Blood Cell (WBC) Count 1.93 10x3/uL (4.8-10.8)
[2024-10-26 09:56] LABS: Macrocytosis SLIGHT = 6-15 cells HPF (0-5); Platelet Adequacy Comment Platelets Decreased; Polychromasia SLIGHT = 2-3 cells HPF (0-2); Reflex for Review?? YES; Schistocytes SLIGHT = 2-5 cells HPF (0-1); Smudge Cells 12.5 %; Toxic Granulation SLIGHT
[2024-10-27 05:39] LABS: #Basophils Less than 0.03 10x3/uL (0.0-0.2); #Eosinophils 0.06 10x3/uL (0.0-0.7); #Monocytes 0.28 10x3/uL (0.11-0.59); #Neutrophils 1.03 10x3/uL (1.40-6.50); %Basophils 0.6 % (0.0-1.0); %Eosinophils 3.5 % (0.0-10.0); %Lymphocytes 18.7 % (21.0-51.0); %Monocytes 16.4 % (0.0-10.0); %Neutrophils 60.2 % (42.0-75.0); Hematocrit 25.9 % (36.0-47.0); Hemoglobin 8.7 g/dL (12.0-16.0); Mean Corpuscular Hemoglobin 36.1 pg (27.0-31.0); Mean Corpuscular Volume 107.5 fL (78.0-98.0); Platelet Count 48 10x3/uL (130-400); Red Blood Cell (RBC) Count 2.41 mill/uL (4.20-5.40); White Blood Cell (WBC) Count 1.71 10x3/uL (4.8-10.8)
[2024-10-27 05:43] LABS: Anion Gap 8 mmol/L (10-20); BUN (Urea Nitrogen) 13 mg/dL (9.8-20.1); Calc. Creatinine Clearance 109 mL/min (70-130); Calcium 10.8 mg/dL (7.8-10.44); Carbon Dioxide 23 mmol/L (22-29); Chloride 111 mmol/L (98-107); Glucose 85 mg/dL (70-105); Potassium 4.4 mmol/L (3.5-5.1); Sodium 138 mmol/L (136-145)
[2024-10-27 08:09] VITALS: BP 113/56; TEMP 97.7
== END 2024-10-27 13:34 | disposition home or self-care (01) | DRG 872 ==
LOC: SUATTDRO 13:17 → ERS 13:17 → OBS 17:06 → OBSVTOIN 10-25 12:54
PROVIDERS: ADMIT Internal Medicine; ATTEND Internal Medicine
PROC: 3E03329 Introduction of Other Anti-infective into Peripheral Vein, Percutaneous Approach (ICD-10-PCS; principal; 2024-10-24)
PROC: 30233J1 Transfusion of Nonautologous Serum Albumin into Peripheral Vein, Percutaneous Approach (ICD-10-PCS; 2024-10-24)
DX: A41.9 Sepsis, unspecified organism (principal); D61.818 Other pancytopenia; E87.20 Acidosis, unspecified; Z68.41 Body mass index [BMI] 40.0-44.9, adult; N10 Acute pyelonephritis; K76.6 Portal hypertension; I12.9 Hypertensive chronic kidney disease with stage 1 through stage 4 chronic kidney disease, or unspecified chronic kidney disease; E66.01 Morbid (severe) obesity due to excess calories; K74.60 Unspecified cirrhosis of liver; E87.8 Other disorders of electrolyte and fluid balance, not elsewhere classified; I95.9 Hypotension, unspecified; N18.2 Chronic kidney disease, stage 2 (mild); K75.81 Nonalcoholic steatohepatitis (NASH); Z88.5 Allergy status to narcotic agent; Z92.3 Personal history of irradiation; Z79.899 Other long term (current) drug therapy; Z79.82 Long term (current) use of aspirin; E80.6 Other disorders of bilirubin metabolism; Z85.05 Personal history of malignant neoplasm of liver; R16.0 Hepatomegaly, not elsewhere classified; D63.1 Anemia in chronic kidney disease; B96.1 Klebsiella pneumoniae [K. pneumoniae] as the cause of diseases classified elsewhere
CPT/HCPCS: 36415; 71045; 74176; 80048; 80053; 81001; 82805; 83605; 83690; 84484; 85025; 85060; 85610; 85730; 87040; 87077; 87086; 87149; 87186; 93005; 96361; 96365; 96367; 96376; G0378; J0696; J7030; J7120; P9047